=== PATIENT | female | born 1955 | race Caucasian/White ===

== ENCOUNTER 2016-11-12 16:13 | Emergency (ER) | payer OTHER ==
[~2016-11-12 16:13] MED LIST: ALBUTEROL17 G1 IH; ALBUTEROL17 GM INH; ALPRAZOLAM; ALPRAZOLAM PO; AMITRYPTYLINE; BACLOFEN10 MG PO; BENTYL20 M1 PO; CIPRO PO; CLARITIN10 MG PO; CLARITIN5 MG; CLEOCIN PO; CLINDAMYCIN HC300 MG PO; CYMBALTA PO; EFFEXOR; EFFEXOR XR; ERYTHROMYCIN B500 MG PO; FISH OIL 1,001000 M1 PO; FLEXERIL PO; FLEXERIL10 M1 PO; GABAPENTIN400 MG PO; GLUCOTROL PO; GLUCOTROL XL10 MG PO; IBUPROFEN PO; KCL PO; KLONOPIN0.5 MG PO; KLONOPIN1 MG PO; KLOR-CON PO; LANTUS100 U/ML SUBQ; LASIX PO; LIPITOR; LISINOPRIL PO; LISINOPRIL5 MG PO; LOPID600 MG PO; LORTAB 10-5001 EACH PO; LORTAB 10/500 T1 TAB PO; METFORMIN; METFORMIN HCL1000 M1 PO; METFORMIN PO; MIRALAX17 GM PO; MUCINEX DM1 TAB.SR . PO; NAPROSYN500 MG PO; NEURONTIN PO; OMEPRAZOLE40 M1 PO; PRAVACHOL PO; PREDNISONE5 MG PO; ROBAXIN PO; TYLENOL #3 PO; ULTRAM PO; VIBRAMYCIN100 M1 PO; VICODIN 5/500 T1 TAB PO; VICODIN PO; VOLTAREN75 MG PO; ZANTAC; ZANTAC PO; ZANTAC150 M1 PO; ZESTRIL5 MG PO; ZITHROMAX1 G/PKT PO; ZOCOR PO; ZOFRAN PO
[2016-11-12] MEDS ORDERED: PRAVACHOL20 MG PO (16:18)
[2016-11-12] MEDS ORDERED: LOPID600 MG PO (16:18)
[2016-11-12] MEDS ORDERED: BASAGLAR K100 UNIT/1 SUBQ (16:18)
== END 2016-11-12 16:48 | disposition home or self-care (01) ==
LOC: SED 16:13
DX: K04.7 Periapical abscess without sinus (principal); F32.9 Major depressive disorder, single episode, unspecified; F41.9 Anxiety disorder, unspecified; J44.9 Chronic obstructive pulmonary disease, unspecified; Z88.0 Allergy status to penicillin; Z79.4 Long term (current) use of insulin; Z79.899 Other long term (current) drug therapy
CPT/HCPCS: 99282

== ENCOUNTER 2016-12-11 17:18 | Emergency (ER) | payer OTHER ==
[~2016-12-11 17:18] MED LIST changes: +BASAGLAR K100 UNIT/1 SUBQ; +PRAVACHOL20 MG PO
== END 2016-12-11 18:30 | disposition home or self-care (01) ==
LOC: SED 17:18
DX: G89.18 Other acute postprocedural pain (principal); K13.79 Other lesions of oral mucosa; I10 Essential (primary) hypertension; K21.9 Gastro-esophageal reflux disease without esophagitis; J44.9 Chronic obstructive pulmonary disease, unspecified; Z98.51 Tubal ligation status; F17.210 Nicotine dependence, cigarettes, uncomplicated; Z88.0 Allergy status to penicillin; Z79.4 Long term (current) use of insulin; Z79.899 Other long term (current) drug therapy
CPT/HCPCS: 99283